=== PATIENT | male | born 1960 | race Caucasian/White ===

== ENCOUNTER 2017-04-16 15:39 | Inpatient (IN) | payer BC ==
[~2017-04-16] VITALS: Ht 170.2 cm; Wt 97.5 kg
[2017-04-16] MEDS ORDERED: ASPIRIN 81 MG CHEW TAB PO ONE ×2 (16:45)
--- NOTE | 2017-04-16 17:02 | Diagnostic Imaging Report ---
PROCEDURE: A single AP view of the chest. COMPARISON: None. INDICATIONS: LEFT SIDED CHEST PAIN FINDINGS: Lines/tubes: None. Lungs: The lungs are well inflated and clear. There is no evidence of pneumonia or pulmonary edema. Pleura: There is no pleural effusion or pneumothorax. Heart and mediastinum: The heart and the mediastinum are unremarkable. Bones: No acute bony abnormality. Upper abdomen: No free air under the diaphragm. IMPRESSION: No acute cardiopulmonary disease. Dictated by: Erickson Chavez M.D. on 04/16/2017 at 17:11 Electronically approved by: Erickson Chavez M.D. on 04/16/2017 at 17:11
[2017-04-17] MEDS ORDERED: NITROGLYCERIN 2% OINT 1 GM PKT TOP SCH (00:15)
[2017-04-17] MEDS ORDERED: METOPROLOL TARTRATE 25 MG TAB PO ONE (00:30)
[2017-04-17 00:54] LABS: BASOPHILS # (AUTO) 0.1 (0.0-0.1); BASOPHILS % 0.4 % (0.0-1.0); EOSINOPHILS % 0.3 % (0.0-6.0); HEMATOCRIT 44.5 % (38.2-49.6); HEMOGLOBIN 14.9 g/dL (14.0-18.0); LYMPHOCYTES # (AUTO) 2.8 (1.0-3.2); LYMPHOCYTES % 22.6 % (18.0-39.1); MEAN CORPUSCULAR HEMOGLOBIN 28.3 pg (28-32); MEAN CORPUSCULAR HGB CONC 33.5 g/dL (31-35); MEAN CORPUSCULAR VOLUME 84.4 fL (81-99); MONOCYTES # (AUTO) 1.2 (0.2-0.8); MONOCYTES % 9.7 % (4.4-11.3); NEUTROPHILS # (AUTO) 8.3 (2.1-6.9); NEUTROPHILS % 66.5 % (38.7-80.0); PLATELET COUNT 190 x10e3/uL (140-360); RED BLOOD COUNT 5.27 x10e6/uL (4.3-5.7); RED CELL DISTRIBUTION WIDTH 13.8 % (11.7-14.4)
[2017-04-17 01:03] LABS: INR 0.91; PROTHROMBIN TIME 12.7 seconds (11.9-14.5)
[2017-04-17 01:04] LABS: PARTIAL THROMBOPLASTIN TIME 31.1 seconds (23.8-35.5)
[2017-04-17] MEDS ORDERED: MORPHINE SULFATE 2 MG/ML SYR IV STA (01:12)
[2017-04-17] MEDS ORDERED: ONDANSETRON HCL INJ 2 MG/ML VIAL IV STA (01:12)
[2017-04-17 01:13] LABS: ALANINE AMINOTRANSFERASE 43 IU/L (0-55); ALBUMIN 4.1 g/dL (3.5-5.0); ALBUMIN/GLOBULIN RATIO 1.2 (0.8-2.0); ALKALINE PHOSPHATASE 50 IU/L (40-150); ANION GAP 14.9 mmol/L (8-16); BLOOD UREA NITROGEN 15 mg/dL (7-26); BUN/CREATININE RATIO 15 (6-25); CALCIUM 9.2 mg/dL (8.4-10.2); CARBON DIOXIDE 25 mmol/L (22-29); CHLORIDE 107 mmol/L (98-107); CREATINE KINASE 91 IU/L (30-200); CREATININE, SERUM 1.01 mg/dL (0.72-1.25); EST GLOMERULAR FILTRATION RATE > 60 ML/MIN (60-); GLUCOSE 102 mg/dL (74-118); POTASSIUM 3.9 mmol/L (3.5-5.1); SODIUM 143 mmol/L (136-145)
[2017-04-17] MEDS: ENOXAPARIN SODIUM INJ 100 MG/ML SYR SC SCH ×2 (02:00→12:23)
[2017-04-17] MEDS ORDERED: ASPIRIN 325 MG TAB PO ONE (02:15)
[2017-04-17] MEDS ORDERED: ONDANSETRON HCL INJ 2 MG/ML VIAL IV PRN (02:30)
[2017-04-17] MEDS ORDERED: MORPHINE SULFATE 2 MG/ML SYR IV PRN (02:30)
[2017-04-17 04:33] LABS: CREATINE KINASE MB 2.3 ng/mL (0.00-5.00)
[2017-04-17 05:54] VITALS: BP 151/94
[2017-04-17 05:55] VITALS: BP 151/94
[2017-04-17] MEDS: NITROGLYCERIN 2% OINT 1 GM PKT TOP SCH ×2 (06:00→12:00)
[2017-04-17 07:41] VITALS: BP 127/84
[2017-04-17] MEDS: METOPROLOL TARTRATE 25 MG TAB PO SCH ×2 (08:27→23:19)
[2017-04-17] MEDS: ASPIRIN 325 MG TAB EC PO SCH (08:27)
[2017-04-17] MEDS: CLOPIDOGREL BISULFATE 75 MG TAB PO SCH (08:27)
[2017-04-17] MEDS: FAMOTIDINE 20 MG TAB PO SCH ×2 (08:27→16:11)
[2017-04-17] MEDS: LISINOPRIL 10 MG TAB PO SCH (08:27)
[2017-04-17] MEDS ORDERED: FAMOTIDINE 20 MG/2 ML VIAL IV SCH (09:00)
[2017-04-17] MEDS: SODIUM CHLORIDE 0.9% 1000ML 1,000 ML IV SCH (09:26)
--- NOTE | 2017-04-17 10:06 | Consultation ---
DATE OF CONSULTATION: April 17, 2017 CARDIOLOGY CONSULTATION REASON FOR CONSULTATION: Chest pain. HISTORY OF PRESENT ILLNESS: Mr. Dilip Romero is a 56-year-old male with a pertinent past medical history of CAD for the last 15 years, hypertension, hyperlipidemia, and borderline diabetes, who comes in because of exertional chest pain for the last 3 days. He states that he is from [place], [place], and he is here for work. Has had chest pain like such before, and he knew that he most likely has possible blockages. However, he was waiting to hear back from his behavioral health care coordinator in [place], and that is the reason he did not present to the emergency department until 2-3 days later. He describes his pain as pressure on the left side of the chest radiating to the jaw and the left arm. This pressure and pain increases with movement, such as ambulation. However, it is relieved with rest and also nitro and aspirin. At the moment, he is resting comfortably in bed. Does not appear to be in any acute distress. Denies any chest pain at the moment, shortness of breath, palpitations, cough, dizziness, syncope, fever, chills, nausea, or vomiting. REVIEW OF SYSTEMS: Negative except as mentioned above. PAST MEDICAL HISTORY: As above. CAD, hypertension, hyperlipidemia, borderline diabetes. PAST SURGICAL HISTORY: Multiple orthopedic surgery including shoulder, biceps and ankles. SOCIAL HISTORY: He is . 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 Denies illicit drug or cocaine intake or smoking. FAMILY HISTORY: Positive for coronary artery disease and heart failure. PHYSICAL EXAMINATION VITAL SIGNS: Temperature 97.5, pulse 75, respiratory rate 18, blood pressure 127/84, oxygen saturation 96% on room air. GENERAL: Alert and oriented times 3. Resting comfortably in bed. Does not appear to be in any acute distress. LUNGS: Clear to auscultation throughout. No wheezing or rhonchi or crackles. NECK: Supple. No JVD noted. No carotid bruits. CARDIOVASCULAR: Regular rate and rhythm. Normal S1 and S2. ABDOMEN: Rounded, soft and nontender. EXTREMITIES: Two plus pedal pulses. No edema. No discoloration. CARDIOVASCULAR MEDICATIONS 1. Lisinopril 10 mg p.o. daily. 2. Metoprolol 25 mg p.o. q.12 h. 3. Plavix 75 mg p.o. daily. 4. Aspirin 325 mg p.o. daily. 5. Lovenox 100 mg subcutaneously q.12 h. 6. Atorvastatin 40 mg p.o. at night. 7. Morphine 2 mg q.3 h. p.r.n. LABS: Sodium 143, potassium 3.9, BUN 50, creatinine 1.01, glucose 102, calcium 9.2, AST 27, ALT 43, alkaline phosphatase 50. CK 91, CK-MB 2.5, troponin 0.38. Most recent troponin 0.364. BNP 19.3. WBC 12.48, hemoglobin 14.9, hematocrit 44.5, and platelets 190,000. PT 12.7, INR 0.91 and PTT 31.1. Chest x-ray with no acute cardiopulmonary disease. IMPRESSION 1. Unstable angina. 2. Nwa-PS-eeoofox elevation myocardial infarction. 3. Coronary artery disease. 4. Hypertension. 5. Hyperlipidemia. 6. Borderline diabetes. RECOMMENDATIONS/PLAN: Coronary angiogram this afternoon. Initiate IV fluids for now. Continue the above list of cardiac medications. Maintain the patient on telemetry. Monitor closely. Thank you, Dr. Mathis, for this consultation, and allowing us to participate in this patient's care. Recommendations will follow after the coronary angiogram. DICTATED BY JACOB CONNOLLY NP Job#: [id number] TREY
[2017-04-17 11:39] VITALS: BP 131/81
[2017-04-17 11:45] VITALS: BP 131/81
[2017-04-17 12:09] LABS: CREATINE KINASE MB 1.8 ng/mL (0.00-5.00)
[2017-04-17] MEDS ORDERED: HEPARIN SOD (PORCINE) 1000 UNIT/ML 30ML ONE (15:32)
[2017-04-17] MEDS ORDERED: IOPAMIDOL 370 MG/ML 200 ML INFUS..BTL INJ ONE ×2 (15:33→16:09)
[2017-04-17] MEDS ORDERED: FENTANYL CITRATE/PF 100MCG/2 ML INJ ONE (15:33)
[2017-04-17] MEDS ORDERED: HEPARIN SOD/SOD CHLORIDE 2,000 ML ONE (15:33)
[2017-04-17] MEDS ORDERED: LIDOCAINE HCL 2% LOCAL 20 ML VIAL ONE (15:33)
[2017-04-17] MEDS ORDERED: MIDAZOLAM HCL 2 MG/2 ML VIAL ONE ×2 (15:33→16:15)
[2017-04-17] MEDS ORDERED: SODIUM CHLORIDE 0.9% 1000ML 1,000 ML ONE (15:34)
[2017-04-17] MEDS ORDERED: NITROGLYCERIN/D5W 200 MCG/ML 250 ML ONE (15:35)
[2017-04-17] MEDS ORDERED: VERAPAMIL HCL 2.5 MG/ML 2 ML VIAL ONE (15:36)
[2017-04-17 18:53] LABS: CREATINE KINASE MB 1.4 ng/mL (0.00-5.00)
--- NOTE | 2017-04-17 19:13 | History and Physical ---
PRIMARY CARE PROVIDER: Dr. Parker Donovan in [place]. CHIEF COMPLAINT: Chest pain. HISTORY OF PRESENT ILLNESS: Mr. Romero is a 56-year-old gentleman who presents with ominous sounding chest pain that for the last couple of days has come and gone, worse with any activity. The patient does have a history of coronary artery disease and had elevated troponins on presentation consistent with an acute non-ST elevated IN. REVIEW OF SYSTEMS: He denies fever, chills or weight loss. Denies sinus congestion or sore throat. He has chest pain as noted. No palpitations, no shortness of breath, wheezing or cough. No abdominal pain, nausea, vomiting or melena. No dysuria or flank pain. No rash or pruritus. No joint pain or swelling. No bleeding or bruising. No headache, vertigo or loss of consciousness. No depression, agitation, homicidal or suicidal ideation. PAST MEDICAL HISTORY: Significant for longstanding hypertension and hyperlipidemia and coronary artery disease. The patient had his first coronary event 15 years ago, had angiogram with angioplasty and stent placement in the right coronary artery 15 years ago and has had at least 4 or 5 angioplasties done on the same vessel over the last 15 years. He also has history of prediabetes but is on medication. He is diet controlled. HOME MEDICATIONS: Unknown at this time. PAST SURGICAL HISTORY: He has a history of left shoulder surgery and biceps replacement and bilateral ankle surgery. ALLERGIES: NO KNOWN DRUG ALLERGIES. FAMILY HISTORY: Significant for hypertension and heart disease. SOCIAL HISTORY: The patient is . [place] is his primary language. He does not smoke, drink or use illegal drugs. He is generally independently functioning. PHYSICAL EXAMINATION: VITAL SIGNS: Blood pressure 131/81. Pulse 75 and regular. Respiratory rate 16. O2 sat 96%. Temperature 96.2. HEENT: Head is atraumatic. His eyes are anicteric with clear conjunctivae. Ears and nares are without erythema or discharge. Oropharynx is clear. NECK: Is supple with no mass or thyromegaly. LYMPHATIC SYSTEM: He has no palpable cervical, axillary or inguinal adenopathy. CARDIOVASCULAR: Heart has a regular rate and rhythm without murmur or extra heart sounds. No carotid bruit. He has no peripheral edema. Has palpable dorsal pedal pulses. RESPIRATORY: Clear to auscultation and percussion with normal respiratory effort. GASTROINTESTINAL: Abdomen is soft without organomegaly, masses or tenderness. Normal bowel sounds present. CUTANEOUS: His skin is warm and dry to touch with no rash or skin breakdown. MUSCULOSKELETAL: Joints are normal alignment without erythema or swelling. Has no calf tenderness. NEUROLOGIC: Exam is nonfocal with intact cranial nerves and no motor or sensory deficits. DIAGNOSTIC STUDIES: Chest x-ray shows no acute disease. His EKG shows normal sinus rhythm with nonspecific T wave and ST abnormalities. He had an echocardiogram that showed concentric left ventricular hypertrophy, trace mitral regurg and an EF of 60% to 65%. His troponin is 0.380, 0.364, 0.312. BNP 19.3. Chemistry showed normal electrolytes. CO2 25. Creatinine 1.01. BUN 15 for a normal GFR. Calcium 9.2. Glucose 102. Transaminases, bilirubin and alkaline phos are normal. CBC shows a white count of 12.4 with a normal differential. Hemoglobin 14.9, hematocrit 44.5 and platelet count of 190,000. IMPRESSION AND PLAN 1. Chest pain/acute non-ST elevated IN. The patient was started on aspirin, beta blockers, lisinopril, statin and cardiology was consulted. They took the patient to the labor contract analyst this afternoon and found to have right coronary artery occlusion, but too many stents to re-stent. The patient had angioplasty to restore flow and will be referred for single vessel bypass surgery. 2. Hypertension and hyperlipidemia, unknown previous medications but currently on Norvasc, lisinopril and Lipitor as well as aspirin daily. 3. Prediabetes. Will continue a diabetic diet and check A1c level. 4. For prophylaxis the patient will be on Pepcid for GI prophylaxis and Lovenox for DVT prophylaxis. Job#: [id number]
[2017-04-17 20:00] VITALS: BP 149/101
[2017-04-17] MEDS ORDERED: ATORVASTATIN 40 MG TAB PO SCH (21:00)
[2017-04-18] VITALS: BP 137/84
[2017-04-18] MEDS: ENOXAPARIN SODIUM INJ 100 MG/ML SYR SC SCH (01:55)
[2017-04-18] MEDS: SODIUM CHLORIDE 0.9% 1000ML 1,000 ML IV SCH ×3 (01:57→14:20)
[2017-04-18 04:00] VITALS: BP 141/81
[2017-04-18 07:57] LABS: BASOPHILS % 0.4 % (0.0-1.0); EOSINOPHILS # (AUTO) 0.1 (0.0-0.4); EOSINOPHILS % 0.6 % (0.0-6.0); HEMATOCRIT 36.8 % (38.2-49.6); HEMOGLOBIN 12.2 g/dL (14.0-18.0); LYMPHOCYTES # (AUTO) 2.3 (1.0-3.2); LYMPHOCYTES % 28.4 % (18.0-39.1); MEAN CORPUSCULAR HGB CONC 33.2 g/dL (31-35); MEAN CORPUSCULAR VOLUME 84.6 fL (81-99); MONOCYTES # (AUTO) 0.8 (0.2-0.8); MONOCYTES % 9.8 % (4.4-11.3); NEUTROPHILS # (AUTO) 4.8 (2.1-6.9); NEUTROPHILS % 60.5 % (38.7-80.0); PLATELET COUNT 136 x10e3/uL (140-360); RED BLOOD COUNT 4.35 x10e6/uL (4.3-5.7); RED CELL DISTRIBUTION WIDTH 13.6 % (11.7-14.4)
[2017-04-18] MEDS: FAMOTIDINE 20 MG TAB PO SCH (08:13)
[2017-04-18] MEDS: METOPROLOL TARTRATE 25 MG TAB PO SCH (08:13)
[2017-04-18] MEDS: ASPIRIN 325 MG TAB EC PO SCH (08:13)
[2017-04-18 08:14] VITALS: BP 152/88
[2017-04-18] MEDS: LISINOPRIL 10 MG TAB PO SCH (08:14)
[2017-04-18] MEDS: CLOPIDOGREL BISULFATE 75 MG TAB PO SCH (08:14)
[2017-04-18 08:30] LABS: ALANINE AMINOTRANSFERASE 28 IU/L (0-55); ALBUMIN 3.3 g/dL (3.5-5.0); ALBUMIN/GLOBULIN RATIO 1.1 (0.8-2.0); ALKALINE PHOSPHATASE 43 IU/L (40-150); ANION GAP 11.8 mmol/L (8-16); BLOOD UREA NITROGEN 12 mg/dL (7-26); BUN/CREATININE RATIO 13 (6-25); CALCIUM 8.3 mg/dL (8.4-10.2); CARBON DIOXIDE 26 mmol/L (22-29); CHLORIDE 110 mmol/L (98-107); CHOL/HDL RATIO 5.2 (3.9-4.7); CHOLESTEROL 136 MD/DL (0-199); CREATININE, SERUM 0.94 mg/dL (0.72-1.25); EST GLOMERULAR FILTRATION RATE > 60 ML/MIN (60-); GLUCOSE 94 mg/dL (74-118); HDL CHOLESTEROL 26 MG/DL (40-60); LDL CHOLESTEROL 78 MG/DL (60-130); POTASSIUM 3.8 mmol/L (3.5-5.1); SODIUM 144 mmol/L (136-145); TRIGLYCERIDES 158 MG/DL (0-149)
[2017-04-18 08:53] LABS: FREE T4 (FREE THYROXINE) 0.91 ng/dL (0.8-1.8); THYROID STIMULATING HORMONE 1.899 uIU/mL (0.350-4.940)
[2017-04-18 09:20] VITALS: BP 152/88
[2017-04-18] MEDS ORDERED: ISOSORBIDE MONONITRATE 30 MG TAB CR PO SCH (11:15)
[2017-04-18] MEDS ORDERED: METOPROLOL TARTRATE 25 MG TAB PO ONE (11:15)
--- NOTE | 2017-04-18 11:52 | Progress Note ---
DATE: April 18, 2017 CARDIOLOGY PROGRESS NOTE SUBJECTIVE: The patient feels well. Has no complaints. He is wishing to go home today. Multiple questions were answered regarding the plan for possible single-vessel bypass of the RCA. OBJECTIVE VITAL SIGNS: Temperature 97.5 degrees, pulse 81, respiratory rate 14, blood pressure 152/88, oxygen saturation 96% on room air. GENERAL: Awake and alert, in no acute distress, sitting up in chair. LUNGS: Clear to auscultation bilaterally. No wheezes or crackles. CARDIOVASCULAR: Normal rate, regular rhythm. No murmur. Normal S1 and S2. ABDOMEN: Soft. Nontender. EXTREMITIES: No edema. CARDIAC MEDICATIONS 1. Lisinopril 10 mg p.o. daily. 2. Plavix 75 mg p.o. daily. 3. Metoprolol tartrate 25 mg p.o. q.12 h. 4. Aspirin 325 mg p.o. q.a.m. 5. Atorvastatin 40 mg p.o. nightly. LABS: Sodium 144, potassium 3.8, chloride 110, CO2 26, BUN 12, creatinine 0.94. WBC 7.9, hemoglobin 12.2, hematocrit 36.8, platelets 136. TELEMETRY: Normal sinus rhythm. IMPRESSION 1. Uth-PR-uywhldrxk myocardial infarction. 2. Coronary artery disease with significant disease of the right coronary artery with 100% in-stent restenosis. 3. Hypertension. 4. Hyperlipidemia. 5. Borderline diabetes. RECOMMENDATIONS: Continue current cardiac medications. Change aspirin to 81 mg p.o. daily. Enoxaparin can be stopped. We will titrate up metoprolol and add isosorbide mononitrate in order to maximize antianginal therapy. If the patient feels well, he may be discharged home to follow up with Dr. Roblero and Dr. Thomas regarding his single-vessel bypass. Job#: [id number]
[2017-04-18 13:01] VITALS: BP 147/80
[2017-04-18] MEDS ORDERED: Isosorbide Mononitrate PO (14:56)
[2017-04-18] MEDS ORDERED: LISINOPRIL10 MG PO (14:56)
[2017-04-18] MEDS ORDERED: ASPIRIN CHEW81 MG PO (14:56)
[2017-04-18] MEDS ORDERED: PLAVIX75 MG PO (14:56)
[2017-04-18] MEDS ORDERED: LOPRESSOR25 MG PO (14:56)
[2017-04-18] MEDS ORDERED: Atorvastatin PO (14:56)
[2017-04-18] MEDS ORDERED: METOPROLOL TARTRATE 25 MG TAB PO SCH (21:00)
--- NOTE | 2017-04-18 22:02 | Discharge Summary ---
ADMITTING DIAGNOSES 1. Acute non-ST segment elevation myocardial infarction. 2. Hypertension. 3. Hyperlipidemia. 4. Prediabetes. DISCHARGE DIAGNOSES 1. Acute non-ST segment elevation myocardial infarction. 2. Hypertension. 3. Hyperlipidemia. 4. Prediabetes. 5. Rule out diabetes. Patient was started on aspirin, beta-blockers, lisinopril, statin, and cardiology consulted. The patient went to the labor commissioner on admission day and was found to have a right coronary artery occlusion, but had too many stents to re-stent. The patient had angioplasty and will be referred for single-bypass surgery. Patient is to follow up with Dr. Roblero and Dr. Thomas for the bypass. For hypertension and hyperlipidemia, patient was started on his home medications. Imdur was started prior to discharge to help with the angina. Patient was able to ambulate up and down the hallway on low dose of Imdur 30 mg. Cardiology okay to discharge patient and follow up. Patient discharged home on home medicines plus Imdur. Echo was done, which showed EF between 55% and 60%. Severe left ventricular hypertrophy. Chest x-ray showed no acute cardiopulmonary disease. On day of discharge, the troponin was 0.112. On admission, the troponin was 0.380. Patient denied chest pain, was afebrile. Vital signs were stable. BNP was found to be 19.3. Patient is to discharge home and follow up with cardio and PCP. Dictated by: Tanika Gomez NP ZACK VICTORIA MD Job#: [id number]
[2017-04-19] MEDS ORDERED: ASPIRIN 81 MG CHEW TAB PO SCH (09:00)
[2017-04-19] MEDS ORDERED: ASPIRIN 325 MG TAB EC PO SCH (09:00)
== END 2017-04-18 15:54 | disposition home or self-care (01) | DRG 282 ==
LOC: ER 15:39 → ERHOLD 04-17 02:56 → EDBEDREQ 04-17 03:18 → EDBEDREQSVC 04-17 03:18 → IMCU 04-17 04:49
PROVIDERS: ADMIT Internal Medicine; ATTEND Internal Medicine
PROC: 4A023N7 Measurement of Cardiac Sampling and Pressure, Left Heart, Percutaneous Approach (ICD-10-PCS; principal; 2017-04-17)
PROC: B2111ZZ Fluoroscopy of Multiple Coronary Arteries using Low Osmolar Contrast (ICD-10-PCS; 2017-04-17)
PROC: B2151ZZ Fluoroscopy of Left Heart using Low Osmolar Contrast (ICD-10-PCS; 2017-04-17)
DX: I21.4 Non-ST elevation (NSTEMI) myocardial infarction (principal); I10 Essential (primary) hypertension; R73.09 Other abnormal glucose; I25.110 Atherosclerotic heart disease of native coronary artery with unstable angina pectoris
CPT/HCPCS: 36140; 36415; 71045; 77002; 80053; 80061; 82550; 82553; 83036; 83880; 84439; 84443; 84484; 85025; 85610; 85730; 93005; 93306; 93452; 93458; 99284; J1644; J1650; J2001; J2250; J2270; J2405; J7030; Q9967